=== PATIENT | male | born 1980 | race Caucasian/White ===

== ENCOUNTER → 2021-01-07 | Outpatient (CLI) | payer BC ==
[~2021-01-07] MED LIST: ADVIL200 M1 PO; CIMETIDINE200 MG PO; LIPITOR 20 MG T20 M1 PO; METOPROLOL SUCC50 MG PO; PRINIVIL40 MG PO; PROAIR HFA8.5 GM INH; PROTONIX40 M2 PO; TYLENOL EXTRA500 MG PO
== END ==
LOC: LAB 13:34
PROVIDERS: ATTEND Student in an Organized Health Care Education/Training Program
DX: Z01.812 Encounter for preprocedural laboratory examination (principal); Z20.822 Contact with and (suspected) exposure to COVID-19

== ENCOUNTER 2021-01-11 06:08 | Day surgery (SDC) | payer BC, OTHER ==
[~2021-01-11] VITALS: Ht 172.7 cm; Wt 97.5 kg
--- NOTE | ~2021-01-11 | O ---
[facility] [place] [address] OPERATIVE REPORT Name: CHARMAINE HARRELL Room #: 447-P REG [facility]..#: [id number] Admission: 01/11/21 Attend Phys: Max Zeng MD Discharge: Date of : 76 Report #: [id number] THIS REPORT FOR: cc: Tammy Madison MD, Yvette L. MD Clymer,Max Salcido MD ~ DATE OF SERVICE: 01/11/2021 PREOPERATIVE DIAGNOSES: Herniated lumbar disc, L4-L5 left with radiculopathy. POSTOPERATIVE DIAGNOSES: Herniated lumbar disc, L4-L5 left with radiculopathy. PROCEDURE: Decompressive laminectomy and foraminotomy with microdiskectomy, L4-L5, left. SURGEON: Max Zeng MD INDICATIONS: This 40-year-old gentleman complains of pain, which started in the low back and then radiated into the left lower extremity. He has had symptoms for several months. Previous MRI study confirms a moderately large disk herniation at L4-L5 toward the left side causing nerve root impingement. There does not appear to be any extruded fragments, but there is significant canal and foraminal narrowing. The facet joint is also slightly hypertrophied contributing to foraminal narrowing and nerve impingement. He has tried conservative measures including activity moderation, physical therapy, medications, and epidural injections without clear benefit. He has elected to go ahead with surgical decompression. DESCRIPTION OF PROCEDURE: The patient was taken to the operating room where he was placed under general anesthesia. Prophylactic intravenous antibiotics were administered. He was turned to the prone position. The low back was meticulously prepped and draped. C-arm was used to localize the appropriate level, which was marked. A skin incision was then made over the L4-L5 interspace slightly toward the left of midline. This was carried through subcutaneous tissues and fascia. The paraspinal muscles were retracted laterally exposing the lamina of L4 and L5. A small laminotomy in the inferior aspect of L4 and the superior aspect of L5 was created allowing good visualization of the canal. The ligamentum was then excised in this region. The bony dissection was carried out laterally undercutting the facet joint, which was slightly hypertrophied and degenerative. This allowed good exposure of the canal and the neural foramina. The nerve root and dura were slightly prominent consistent with pressure from an underlying disk. The L5 nerve root and the dura were gently retracted across the midline, exposing the disk. There was a fairly prominent disk with significant impingement on the canal and neural foramina. There did not appear to be any extruded fragments. The location was confirmed with C-arm. Using a probe pressed into the annulus, this confirmed [facility] [address] [place] [address] OPERATIVE REPORT Name: CHARMAINE HARRELL Room #: 447-P [place] [facility] [place].#: [id number] Admission: 01/11/21 Attend Phys: Max Zeng MD Discharge: Date of : 76 Report #: [id number] that I was at the L4-L5 disk level. The annulus was opened with a small 11 blade and a moderate amount of loose degenerative disk debris immediately ____. This was removed. The disk was further debrided using pituitary rongeurs. A good deal of loose degenerative disk debris was evacuated. A financial services representative sample was sent for pathology. A good deal of other degenerative disk debris was simply discarded. This resulted in satisfactory decompression of the disk. The disk bulge was improved nicely. The canal seemed to be nicely decompressed. The neural foramina was carefully palpated and the nerve root seemed to be freed up nicely. Some additional decompression was accomplished by further undercutting of the facet joint, extending out laterally with a limited foraminotomy. At the conclusion, there seemed to be good improvement in the canal and satisfactory relief of pressure on the nerve root. The nerve root itself was somewhat red and erythematous consistent with some chronic pressure and nerve inflammation. No other abnormalities were identified. The canal was carefully probed proximally, distally and across the midline. No other abnormalities were identified. The disk is still slightly spongy and prominent, but without any evidence of significant ongoing compression with the canal. The wound was copiously irrigated. Good hemostasis was established, 40 mg of Depo-Medrol were left in the epidural space. This was covered with a small sheet of Gelfoam soaked in thrombin. The muscle and fascia were closed with multiple #1 Vicryl sutures. The subcutaneous tissues were closed with 2-0 Monocryl. The skin was closed with a running subcuticular 2-0 Prolene supplemented with Steri-Strips. About 20 mL of 0.5% Marcaine with epinephrine were left in the subcutaneous tissues and muscle layer for postoperative analgesia. The patient was then awakened and returned to the recovery room in good condition. By: 0835 0847 Max Zeng MD /chris
[2021-01-11 06:46] VITALS: BP 153/100
--- NOTE | 2021-01-11 07:34 | EKG ---
[address] [address] ELECTROCARDIOGRAM REPORT Name: CHARMAINE HARRELL Room #: 150-1 [facility].#: [id number] Admission: 01/11/21 Attend Phys: Max Zeng MD Discharge: Date of : 76 Report #: [id number] [facility] Test Date: 2021-01-11 Test Time: 06:30:27 Pat Name: CHARMAINE HARRELL Department: Room: 150 1 Gender: M Rn Oncology Research: MARÍA : 1980 Requested By: Max Zeng Order Number: [id number] : Carloz Harrison Measurements Intervals [place] Rate: 104 P: 36 MS: 143 QRS: 35 QRSD: 79 T: 13 QT: 309 QTc: 407 Interpretive Statements Sinus tachycardia No previous ECG available for comparison Electronically Signed On 01-11-2021 7:34:03 CDT by Carloz Harrison [email or web address] <ELECTRONICALLY SIGNED> By: Carloz Harrison MD, [facility] 01/11/21 0734 0630 0630 Carloz Harrison MD, FACC /EPI
[2021-01-11 15:00] VITALS: BP 135/72
--- NOTE | 2021-01-11 15:31 | NUR ---
Pt arrived to unit from surgery. Pt a&ox4. IVF infusing. Dressing c/d/i. Pt tolerated diet well. Able to ambulate. Able to void. Pain controlled. Expresses desire to go home today. Provider notified. Pt will discharge to home today.
[2021-01-11 15:41] VITALS: BP 153/100
--- NOTE | 2021-01-13 12:07 | PATH ---
[facility] [address] [place] [address] PATHOLOGY RPT PROCEDURE Name: SILVESTRE HARRELL Room #: [place] [facility].#: [id number] Admission: 01/11/21 Date of : 76 Discharge: 01/11/21 Report #: [id number] Path Case #: [id number] [facility] Accession Number: [id number] . 01 Material submitted: . vertebral column - L4- L5 LEFT DISC . 01 Clinical history: . LUMBAR LAMINECTOMY . 02 Diagnosis: Disc, left L4-L5 disc, laminectomy: - Fragments of nucleus pulposus with reactive changes. ([facility]; 01/12/2021) [facility] 01/12/2021 [facility] Local . 02 Electronically signed: . Millicent La MD, Pathologist NPI- [id number] . 01 Gross description: . The specimen is received in formalin, labeled "Silvestre Harrell, L4-L5 left disc". Received are multiple segments of pale john to pink-john fibrous tissue admixed with fragments of gritty bone measuring 3.0 x 3.0 x 0.6 cm in aggregate dimensions. The specimen is submitted self pay representative lesion cassette A1, following light decalcification. ([facility]; 01/11/2021) [facility] 01/11/2021 1325 Local . 02 Pathologist provided ICD-10: M51.26, M54.16 . 02 CPT . 157386, 698223 Specimen Comment: A courtesy copy of this report has been sent to [phone] Specimen Comment: Report sent to Specimen Comment: A duplicate report has been generated due to demographic updates. Performed at: [address], [place] [id number] MD Jeffery Parra MD Phone: [phone] Performed at: [address] [id number] MD Millicent La MD Phone: [phone]
== END 2021-01-11 16:57 | disposition home or self-care (01) ==
LOC: OR → TBA 06:10 → OR 09:45 → 4S 12:11 → OR 14:04
PROVIDERS: ATTEND Orthopaedic Surgery
DX: M51.16 Intervertebral disc disorders with radiculopathy, lumbar region (principal); M54.59 Other low back pain; I10 Essential (primary) hypertension; E78.5 Hyperlipidemia, unspecified; J45.909 Unspecified asthma, uncomplicated; K21.9 Gastro-esophageal reflux disease without esophagitis; Z98.890 Other specified postprocedural states; Z79.899 Other long term (current) drug therapy; Z87.891 Personal history of nicotine dependence
CPT/HCPCS: 50010; 50101; 50402; 50704; 50850; 52255; 56525; 62110; 62900; 70005